=== PATIENT | female | born 1965 | race Caucasian/White ===

== ENCOUNTER → 2016-11-19 | Outpatient (CLI) | payer OTHER ==
[~2016-11-19] MED LIST: AUGMENTIN 875875 MG PO; PROTONIX40 MG PO
== END | disposition home or self-care (01) ==
LOC: CT 13:55
DX: J32.9 Chronic sinusitis, unspecified (principal); J34.2 Deviated nasal septum; R51 Headache; H92.02 Otalgia, left ear; H70.92 Unspecified mastoiditis, left ear

== ENCOUNTER 2016-11-22 19:14 | Inpatient (IN) | payer OTHER ==
[~2016-11-22] VITALS: Ht 178 cm; Wt 72.1 kg
--- NOTE | ~2016-11-22 | CON ---
[place], [place] REPORT OF CONSULTATION NAME: [facility]Z [facility] [id number] UNIT #: [id number] ROOM: 404 DOCTOR: JULIANN RIVAS MD BIRTHDATE: [birth year] DOS: 11/24/2016 HISTORY OF PRESENT ILLNESS: The patient is a 51-year-old who has presented with chief complaint of not feeling well, peripheral edema as well as initial H and H of 5 and 19, status post multi transfusions, black tarry stools, and ETOH history. The patient has had history of sinus issues and the left ear otitis, and mastoiditis on the left side. The patient has been on antibiotic here multi dose. Electrolytes were balanced. The bilirubin was 3.4, GOT and GPT of 80 and 17, alkaline phosphatase 212. CBC differential was reassessed, platelet count of 231. Lipase was 298 and alcohol level was 279. CT scan of the abdomen and pelvis, hepatomegaly, hepatic steatosis, dilated versus stricture along the left side of uterus, mild gallbladder wall thickening, and pericholecystic fluid. CT scan of the abdomen and pelvis reassessed with contrast. CBC differential after multiple transfusions was reassessed. H and H improved to 9 and 28, white blood cell still remains 12, platelet count 185. Differential within normal limits. Ultrasound of the abdomen was reassessed. Fatty liver, hepatosplenomegaly, bidirectional flow within the main portal vein, and prominence of the main portal vein and splenic vein. Mild gallbladder wall thickening, pericholecystic fluid was again seen and no stone was identified. Garvey sign was negative. PAST MEDICAL HISTORY: Essentially unremarkable. PAST SURGICAL HISTORY: Tonsillectomy and sinus left ear. SOCIAL HISTORY: Nonsmoker, however, alcohol consumer. FAMILY HISTORY: Hypertension. ALLERGIES: No known medication. REVIEW OF SYSTEMS: HEENT: Denies double vision, blurred vision. RESPIRATORY: Admits chronic shortness of breath. CARDIOVASCULAR: Denies chest pain. DIGESTIVE SYSTEM: No hematemesis; however, black tarry stool. PHYSICAL EXAMINATION: VITAL SIGNS: Stable. HEENT: Head normocephalic, nontraumatic. Mouth and buccal mucosa benign. NECK: Supple, no thyromegaly. CHEST: Symmetric anatomy, equal expansion. Decreased air entry in general. HEART: Normal sinus rhythm, no gallop, no murmur. ABDOMEN: Soft, slightly distended. Bowel sounds present. No rebound tenderness. EXTREMITIES: 2+ edema. NEUROLOGIC: Alert and oriented to time, place, person. IMPRESSION: Abnormal liver function test, most likely secondary to ETOH ruling out ___ for viral hepatitis, distended gallbladder with pericholecystic fluid, possibility of cholecystitis without evidence of cholelithiasis or choledocholithiasis, severe anemia, status post multitransfusion for hemoglobin [place], [place] REPORT OF CONSULTATION NAME: KERLINE ALVAREZ UNIT #: [id number] ROOM: 404 DOCTOR: JULIANN RIVAS MD BIRTHDATE: [birth year] of 5, which has improved to 9+, status post transfusion. PLAN AND DISCUSSION: Endoscopic assessment of upper GI tract, recommending hepatitis C. ASSESSMENT: Fatty liver and hepatosplenomegaly, most likely secondary to chronic alcoholism. She is not voluntarily yielding much information about her alcohol and I trust that she is at least consuming three bottles of wine per week. Workup in progress. Thank you very much indeed. EGD today, ruling out esophageal varicosity or contribution from upper GI. In future, also, she requires to have a colonoscopy. Hepatitis C is going to be ordered. JULIANN RIVAS MD CM:CONSTR:REPORT OF CONSULTATION 1704 11/25/16 0516 interface
--- NOTE | ~2016-11-22 | O ---
[place], [place] OPERATIVE NOTE [id number] #: [id number] ROOM: 404 DOCTOR: JULIANN RIVAS MD BIRTHDATE: [birth year] DOS: 11/24/2016 GASTROENDOSCOPIC REPORT INDICATIONS: A 51-year-old patient was presented with multiple medical problems, among which has been abnormal liver function tests consuming a moderate volume of wine and also dyspepsia and undergoing investigation. PROCEDURE: Today's procedure part of investigation is panendoscopy plus biopsy. PREMEDICATION: Versed and Diprivan. SCOPE: Olympus forward viewing gastroscope Q10 video. REPORT: After putting the patient in the left lateral position and after application of lubricant to the scope, the scope was introduced. Thereafter, under direct visualization, I advanced through the length of the esophagus without difficulty a 2 cm hiatal hernia was noticed, diffuse gastritis was noticed. Duodenal bulb, second and third part within normal limits. Antral biopsy was obtained. The patient extubated, tolerated procedure well. IMPRESSION: Diffuse gastritis, hiatal hernia, status post biopsy. PLAN AND DISCUSSION: Protonix 40 mg daily. Hepatitis screening panel for A, B, and C and repeat LFTs tomorrow and clinical reassessment. JULIANN RIVAS MD CM:OPRECORD:OPERATIVE NOTE [id number] JULIANN RIVAS MD 11/24/16 2253 interface
[2016-11-22 19:30] VITALS: BP 132/89
[2016-11-22 20:00] VITALS: BP 132/88
[2016-11-22 20:01] LABS: HEMATOCRIT 19.3 % (37.0-47.0); MEAN CORPUSCULAR HGB 29.5 pg (27.0-31.0); MEAN CORPUSCULAR HGB CONC 29.5 g/dl (33.0-37.0); MEAN PLATELET VOLUME 8.2 fl (9.6-12.3); PLATELET COUNT AUTOMATED 232 10*3/uL (130-400); RED BLOOD COUNT 1.93 10*6/uL (4.10-5.10); RED CELL DISTRI WIDTH 19.5 % (0-14.5); WHITE BLOOD COUNT 14.8 10*3/uL (4.8-10.8)
[2016-11-22 20:06] LABS: HEMOGLOBIN 5.7 g/dl (12.0-16.0)
[2016-11-22 20:15] LABS: ALKALINE PHOSPHATASE 212 U/L (45-117); BILIRUBIN, TOTAL 3.4 mg/dl (0.2-1.0); BUN 5 mg/dl (7-24); CARBON DIOXIDE 24 mmol/L (21-32); CHLORIDE 103 mmol/L (98-107); EST GLOM FILT AFRICAN AMERICAN > 60 ml/min; GLUCOSE 107 mg/dL (65-99); POTASSIUM 4.1 mmol/L (3.5-5.1); SGOT/AST 80 IU/L (3-35); SGPT/ALT 17 U/L (12-78); SODIUM 137 mmol/L (136-145)
[2016-11-22 20:20] LABS: BASOPHIL # 0.7 10*3/uL (0-0.1); BASOPHILS 5 % (0-1); EOSINOPHIL # 0.1 10*3/uL (0-0.4); EOSINOPHILS 1 % (1-4); LYMPHOCYTE # 1.9 10*3/uL (1.3-4.4); METAMYELOCYTES 1 % (0-0); MONOCYTE # 0.7 10*3/uL (0.1-1.0); NEUTROPHIL # 11.1 10*3/uL (2.3-7.9); NEUTROPHILS 75 % (47-73); TOTAL CELLS COUNTED 100 #CELLS
[2016-11-22 20:21] LABS: HYPOCHROMIA SLIGHT
[2016-11-22 20:22] LABS: PLATELET SUFFICIENCY NORMAL (NORMAL)
[2016-11-22 21:00] VITALS: BP 122/64
[2016-11-22 21:30] VITALS: BP 118/70
[2016-11-22 22:00] VITALS: BP 130/79; BP 130/80
[2016-11-23] VITALS (32 sets, daily range): BP systolic 92–143; BP diastolic 59–85
[2016-11-23 00:45] LABS: CPK 278 U/L (26-192)
[2016-11-23 00:50] LABS: CKMB 7.9 ng/ml (0.5-3.6); TROPONIN I < 0.015 ng/ml (<0.5)
[2016-11-23 06:34] LABS: BASO # 0.2 10*3/uL (0.0-0.1); BASO % 1.1 % (0.0-1.0); EOS # 0.3 10*3/uL (0.0-0.4); EOS % 1.9 % (1.0-4.0); HEMATOCRIT 21.5 % (37.0-47.0); HEMOGLOBIN 6.8 g/dl (12.0-16.0); IG # 0.1 10*3/uL (0.0-0.1); LYMPH # 0.9 10*3/uL (1.3-4.4); LYMPH % 6.7 % (27.0-41.0); MEAN CORPUSCULAR HGB 29.6 pg (27.0-31.0); MEAN CORPUSCULAR HGB CONC 31.6 g/dl (33.0-37.0); MONO # 1.2 10*3/uL (0.1-1.0); MONO % 8.3 % (3.0-9.0); NEUT # 11.4 10*3/uL (2.3-7.9); NEUT % 81.4 % (47.0-73.0); PLATELET COUNT AUTOMATED 182 10*3/uL (130-400); RED CELL DISTRI WIDTH 19.6 % (0-14.5)
[2016-11-23 06:36] LABS: CPK 187 U/L (26-192); TROPONIN I < 0.015 ng/ml (<0.5)
[2016-11-23 06:38] LABS: CKMB 5.3 ng/ml (0.5-3.6)
[2016-11-23 06:41] LABS: MEAN CELL VOLUME 93.5 fl (81.0-99.0)
[2016-11-23 06:57] LABS: ESTIMATED AVERAGE GLUCOSE 54; HEMOGLOBIN A1c < 3.5 % (4.8-5.6)
[2016-11-23 07:00] LABS: ALBUMIN 1.6 gm/dl (3.1-4.5); ALKALINE PHOSPHATASE 187 U/L (45-117); BILIRUBIN, TOTAL 3.6 mg/dl (0.2-1.0); BUN 5 mg/dl (7-24); CARBON DIOXIDE 23 mmol/L (21-32); CHLORIDE 105 mmol/L (98-107); CHOLESTEROL 99 mg/dL (<200); EST GLOM FILT AFRICAN AMERICAN > 60 ml/min; GLUCOSE 91 mg/dL (65-99); HDL CHOLESTEROL 23 mg/dl (40-60); LDL CHOLESTEROL 59 mg/dL (9-159); MAGNESIUM 1.8 mg/dL (1.5-2.1); PHOSPHOROUS 4.1 mg/dL (2.5-4.9); POTASSIUM 3.9 mmol/L (3.5-5.1); SGOT/AST 66 IU/L (3-35); SGPT/ALT 13 U/L (12-78); SODIUM 138 mmol/L (136-145); TOTAL PROTEIN 6.5 gm/dL (6.4-8.2); TRIGLYCERIDES 83 mg/dl (<150); VLDL CHOLESTEROL 17 mg/dL (6-40)
[2016-11-23 07:08] LABS: INTERNATIONAL NORM RATIO 1.7 (2.0-3.5); PROTHROMBIN TIME 18.5 SECONDS (9.0-12.4)
[2016-11-23 08:09] LABS: FOLIC ACID 2.63 ng/mL (>5.38)
[2016-11-23 08:46] LABS: HEMATOCRIT 21.8 % (37.0-47.0); HEMOGLOBIN 6.8 g/dl (12.0-16.0)
[2016-11-23 12:13] LABS: CPK 160 U/L (26-192)
[2016-11-23 12:21] LABS: TROPONIN I < 0.015 ng/ml (<0.5)
[2016-11-24] VITALS (9 sets, daily range): BP systolic 118–137; BP diastolic 73–82
[2016-11-24 06:09] LABS: BASO # 0.2 10*3/uL (0.0-0.1); BASO % 1.4 % (0.0-1.0); EOS # 0.5 10*3/uL (0.0-0.4); IG # 0.1 10*3/uL (0.0-0.1); LYMPH # 1.6 10*3/uL (1.3-4.4); LYMPH % 13.1 % (27.0-41.0); MEAN CORPUSCULAR HGB 29.5 pg (27.0-31.0); MEAN CORPUSCULAR HGB CONC 32.6 g/dl (33.0-37.0); MEAN PLATELET VOLUME 8.1 fl (9.6-12.3); MONO # 1.1 10*3/uL (0.1-1.0); MONO % 8.9 % (3.0-9.0); PLATELET COUNT AUTOMATED 185 10*3/uL (130-400); RED BLOOD COUNT 3.15 10*6/uL (4.10-5.10); RED CELL DISTRI WIDTH 19.2 % (0-14.5); WHITE BLOOD COUNT 12.5 10*3/uL (4.8-10.8)
[2016-11-24 06:16] LABS: HEMATOCRIT 28.5 % (37.0-47.0); HEMOGLOBIN 9.3 g/dl (12.0-16.0); MEAN CELL VOLUME 90.5 fl (81.0-99.0)
[2016-11-24 06:23] LABS: ALBUMIN 1.6 gm/dl (3.1-4.5); BILIRUBIN, TOTAL 4.9 mg/dl (0.2-1.0); BUN 8 mg/dl (7-24); CARBON DIOXIDE 25 mmol/L (21-32); CHLORIDE 106 mmol/L (98-107); EST GLOM FILT AFRICAN AMERICAN > 60 ml/min; GLUCOSE 75 mg/dL (65-99); POTASSIUM 3.8 mmol/L (3.5-5.1); SGOT/AST 65 IU/L (3-35); SGPT/ALT 13 U/L (12-78); SODIUM 138 mmol/L (136-145); TOTAL PROTEIN 6.9 gm/dL (6.4-8.2)
[2016-11-24 06:27] LABS: ALKALINE PHOSPHATASE 182 U/L (45-117)
[2016-11-25] VITALS: BP 115/67
[2016-11-25 06:40] LABS: BASO # 0.2 10*3/uL (0.0-0.1); BASO % 1.4 % (0.0-1.0); EOS # 0.4 10*3/uL (0.0-0.4); EOS % 3.5 % (1.0-4.0); HEMATOCRIT 29.4 % (37.0-47.0); HEMOGLOBIN 9.2 g/dl (12.0-16.0); IG # 0.1 10*3/uL (0.0-0.1); LYMPH # 1.7 10*3/uL (1.3-4.4); LYMPH % 13.2 % (27.0-41.0); MEAN CELL VOLUME 92.2 fl (81.0-99.0); MEAN CORPUSCULAR HGB 28.8 pg (27.0-31.0); MEAN CORPUSCULAR HGB CONC 31.3 g/dl (33.0-37.0); MEAN PLATELET VOLUME 8.6 fl (9.6-12.3); MONO # 1.1 10*3/uL (0.1-1.0); MONO % 8.7 % (3.0-9.0); NEUT # 9.2 10*3/uL (2.3-7.9); NEUT % 72.7 % (47.0-73.0); PLATELET COUNT AUTOMATED 190 10*3/uL (130-400); RED BLOOD COUNT 3.19 10*6/uL (4.10-5.10); RED CELL DISTRI WIDTH 19.3 % (0-14.5); WHITE BLOOD COUNT 12.6 10*3/uL (4.8-10.8)
[2016-11-25 07:12] LABS: ALBUMIN 1.4 gm/dl (3.1-4.5); BILIRUBIN, DIRECT 2.7 mg/dL (0.0-0.2); BILIRUBIN, TOTAL 4.1 mg/dl (0.2-1.0); BUN 10 mg/dl (7-24); CARBON DIOXIDE 24 mmol/L (21-32); CHLORIDE 103 mmol/L (98-107); EST GLOM FILT AFRICAN AMERICAN > 60 ml/min; GLUCOSE 119 mg/dL (65-99); POTASSIUM 3.8 mmol/L (3.5-5.1); SGOT/AST 57 IU/L (3-35); SGPT/ALT 11 U/L (12-78); SODIUM 136 mmol/L (136-145); TOTAL PROTEIN 6.4 gm/dL (6.4-8.2)
[2016-11-25 07:13] LABS: ALKALINE PHOSPHATASE 168 U/L (45-117)
[2016-11-25 07:14] LABS: INTERNATIONAL NORM RATIO 1.8 (2.0-3.5); PROTHROMBIN TIME 19.9 SECONDS (9.0-12.4)
[2016-11-25 08:00] VITALS: BP 126/72
[2016-11-25 08:09] LABS: HEPATITIS C VIRUS ANTIBODY <0.1 s/co (0.0-0.9)
[2016-11-25 12:00] VITALS: BP 131/83
[2016-11-25 14:00] VITALS: BP 131/83
[2016-11-25 20:00] VITALS: BP 125/76
[2016-11-26] VITALS: BP 115/70
[2016-11-26 06:26] LABS: BASO # 0.2 10*3/uL (0.0-0.1); BASO % 1.5 % (0.0-1.0); EOS # 0.5 10*3/uL (0.0-0.4); EOS % 5.2 % (1.0-4.0); HEMATOCRIT 27.8 % (37.0-47.0); HEMOGLOBIN 8.9 g/dl (12.0-16.0); IG # 0.1 10*3/uL (0.0-0.1); LYMPH # 1.9 10*3/uL (1.3-4.4); LYMPH % 18.5 % (27.0-41.0); MEAN CELL VOLUME 91.1 fl (81.0-99.0); MEAN CORPUSCULAR HGB 29.2 pg (27.0-31.0); MONO # 1.1 10*3/uL (0.1-1.0); MONO % 10.3 % (3.0-9.0); NEUT # 6.6 10*3/uL (2.3-7.9); NEUT % 63.9 % (47.0-73.0); PLATELET COUNT AUTOMATED 189 10*3/uL (130-400); RED BLOOD COUNT 3.05 10*6/uL (4.10-5.10); RED CELL DISTRI WIDTH 18.9 % (0-14.5); WHITE BLOOD COUNT 10.3 10*3/uL (4.8-10.8)
[2016-11-26 06:55] LABS: ALBUMIN 1.5 gm/dl (3.1-4.5); ALKALINE PHOSPHATASE 176 U/L (45-117); BILIRUBIN, TOTAL 3.7 mg/dl (0.2-1.0); BUN 9 mg/dl (7-24); CARBON DIOXIDE 25 mmol/L (21-32); CHLORIDE 106 mmol/L (98-107); EST GLOM FILT AFRICAN AMERICAN > 60 ml/min; GLUCOSE 84 mg/dL (65-99); POTASSIUM 3.9 mmol/L (3.5-5.1); SGOT/AST 57 IU/L (3-35); SGPT/ALT 11 U/L (12-78); SODIUM 138 mmol/L (136-145); TOTAL PROTEIN 6.7 gm/dL (6.4-8.2)
[2016-11-26 07:05] LABS: HEPATITIS C VIRUS ANTIBODY <0.1 s/co (0.0-0.9)
[2016-11-26 08:00] VITALS: BP 124/72
[2016-11-26 12:00] VITALS: BP 128/62
[2016-11-26] MEDS ORDERED: PROTONIX40 MG PO (13:53)
[2016-11-26] MEDS ORDERED: AUGMENTIN 875875 MG PO (13:53)
== END 2016-11-26 14:47 | disposition home or self-care (01) | DRG 871 ==
LOC: ED 19:14 → EDHOLD 20:59 → 4E 20:59 → ICCU 21:23 → 4E 11-24 14:10
PROVIDERS: Family Medicine; Internal Medicine; Internal Medicine Gastroenterology; Nurse Practitioner Family
PROC: 0DB68ZX Excision of Stomach, Via Natural or Artificial Opening Endoscopic, Diagnostic (ICD-10-PCS; principal; 2016-11-24)
DX: A41.9 Sepsis, unspecified organism (principal); E43 Unspecified severe protein-calorie malnutrition; K92.2 Gastrointestinal hemorrhage, unspecified; D62 Acute posthemorrhagic anemia; K70.0 Alcoholic fatty liver; F10.129 Alcohol abuse with intoxication, unspecified; H66.42 Suppurative otitis media, unspecified, left ear; E55.9 Vitamin D deficiency, unspecified; E53.8 Deficiency of other specified B group vitamins; K29.70 Gastritis, unspecified, without bleeding; K44.9 Diaphragmatic hernia without obstruction or gangrene; Z82.49 Family history of ischemic heart disease and other diseases of the circulatory system; Z98.890 Other specified postprocedural states; Z68.21 Body mass index [BMI] 21.0-21.9, adult

== ENCOUNTER → 2017-05-25 | Outpatient (CLI) | payer OTHER | END | disposition home or self-care (01) | LOC: US 17:45 | DX: M79.651 Pain in right thigh (principal); M79.89 Other specified soft tissue disorders ==

== ENCOUNTER 2017-09-03 04:47 | Inpatient (IN) | payer OTHER ==
[2017-09-03] VITALS (25 sets, daily range): BP systolic 120–168; BP diastolic 38–91
[~2017-09-03] VITALS: Ht 177.8 cm; Wt 85.3 kg
--- NOTE | ~2017-09-03 | CON ---
[place], [place] REPORT OF CONSULTATION [id number] #: [id number] ROOM: [facility]- DOCTOR: JULIANN RIVAS MD BIRTHDATE: [birth year] DOS: HISTORY OF PRESENT ILLNESS: The patient has presented with chief complaint of abdominal pain, subcutaneous hematoma in left upper quadrant, which has been already marked. The patient with multiple subcutaneous hematomas elsewhere as well. The patient is a known alcohol dependent end-stage liver disease with multiple admissions to multiple hospitals around. The patient is still actively alcohol consuming consumer. The patient was admitted for definitive evaluation, was found to have serum ammonia of 38, which is elevated. Lactic acid was 1.5 . Comprehensive metabolic panel, GFR greater than 60, electrolytes were balanced. GOT, GPT ____. Her total bilirubin at the time of admission was 10, AST and ALT of 101 and 31 with alkaline phosphatase of 201. CPK-MB was 13. Urine drug screening was negative. Chest x-ray was with no cardiomegaly. CBC differential was assessed. White blood cell was 6, H and H of 5 and 15 with platelet count of 48. Her INR was 2.2 with PT of 24 and PTT of [address] scan of the abdomen was assessed and heterogenicity of the liver was noticed, rectus muscle hematoma was noticed on the left lateral position. Longstanding sequelae of cirrhotic pathology including liver morphology was noticed. Phosphorus was 2.9, H and H after transfusing improved to 6 and eventually further elevation with more transfusion to 7.7 and 22, platelet count of 51. Urine cultures, greater than 100,000 bacteria. PAST MEDICAL HISTORY: Associated with cirrhosis, GI bleed, anemia, abnormal LFTs as a result thrombocytopenia, aggressive alcohol consumption. PAST SURGICAL HISTORY: Tonsillectomy. SOCIAL HISTORY: Nonsmoker, however, aggressive alcohol consumer. FAMILY HISTORY: Noncontributory. ALLERGIES: To no known medications. MEDICATIONS: Medication list at home reviewed. REVIEW OF SYSTEMS: HEENT: Denies double vision, blurred vision. RESPIRATORY: Denies shortness of breath. CARDIOVASCULAR: Denies acute chest pain. DIGESTIVE SYSTEM: No melanotic stool. PHYSICAL EXAMINATION: VITAL SIGNS: Stable, extremely jaundiced patient. HEENT: Head normocephalic, nontraumatic. Mouth and buccal mucosa benign. NECK: Supple, no thyromegaly. CHEST: Symmetric anatomy, equal expansion. HEART: Normal sinus rhythm, no gallop, no murmur. ABDOMEN: Soft. No hepato-organomegaly. Bowel sounds present. No pulsatile mass, cirrhotic liver history. EXTREMITIES: No cyanosis, no pedal edema. [place], [place] REPORT OF CONSULTATION NAME: KERLINE ALVAREZ UNIT #: [id number] ROOM: [facility] DOCTOR: JULIANN RIVAS MD BIRTHDATE: [birth year] NEUROLOGIC: Alert and oriented, no encephalopathy. IMPRESSION: Cirrhotic liver, severe anemia, portal hypertension, possible gastrointestinal bleed, transfusion for above, thrombocytopenia has been noticed. Platelet is going to be transfused. Endoscopic assessment is going to be done. Alcohol aggressive habit is noticed. PLAN AND DISCUSSION: Organizing EGD. JULIANN RIVAS MD CM:CONSTR:REPORT OF CONSULTATION 1040 09/05/17 0532 interface
--- NOTE | ~2017-09-03 | O ---
[place], [place] OPERATIVE NOTE NAME: KERLINE ALVAREZ UNIT #: [id number] ROOM: [facility]- DOCTOR: EVELYN DIMAS,JULIANN BIRTHDATE: [birth year] DOS: HISTORY OF PRESENT ILLNESS: A 51-year-old who has presented with chief complaint of GI bleed, hemoglobin of 5, thrombocytopenia, platelets of 40, two days after transfusion and stabilization is panendoscopy. PREMEDICATION: Versed and Diprivan. SCOPE: Olympus forward-viewing gastroscope Q10 video. REPORT: After putting the patient in the left lateral position and after application of lubricant to the scope, scope was introduced; thereafter, under direct visualization, advanced through the length of the esophagus without difficulty. At distal esophagus, clot on the visible vessel was noticed. Gastric pouch was entered. Gastritis and some degree blood in the gastric pouch noticed. Duodenal bulb, second and third part consistent with duodenitis. The patient extubated, no injection or hemostasis was performed on the tissue of the bleeding clot because of her low platelets. PLAN AND DISCUSSION: Aggressive management with Sandostatin 50 mcg per hour in addition to loading Protonix 40 mg IV b.i.d., sucralfate 2 grams sips q.6h., n.p.o., platelet transfusion up to 6 packs today, ICU monitoring, H and H q.6h., clinical reassessment. JULIANN RIVAS MD CM:OPRECORD:OPERATIVE NOTE 1040 [id number] JULIANN RIVAS MD 09/05/17 0540 interface
[2017-09-03] MEDS ORDERED: DELTASONE20 M1 PO (04:58)
[2017-09-03 05:37] LABS: BILIRUBIN 1+ (NEGATIVE); BLOOD 1+ (NEGATIVE); CLARITY CLOUDY (CLEAR); COLOR YELLOW (YELLOW); GLUCOSE NEGATIVE (NEGATIVE); KETONE NEGATIVE (NEGATIVE); LEUKO ESTERASE NEGATIVE (NEGATIVE); NITRITE POSITIVE (NEGATIVE); PH 5.5 (5.0-9.0); SPECIFIC GRAVITY <= 1.005 (1.005-1.030)
[2017-09-03 05:50] LABS: BACTERIA 4+
[2017-09-03 05:54] LABS: ALBUMIN 2.2 gm/dl (3.1-4.5); ALKALINE PHOSPHATASE 201 U/L (45-117); BUN 8 mg/dl (7-24); CHLORIDE 100 mmol/L (98-107); CPK 434 U/L (26-192); CREATININE 0.63 mg/dL (0.55-1.02); LIPASE 183 U/L (73-393); POTASSIUM 3.7 mmol/L (3.5-5.1); SGOT/AST 101 IU/L (3-35); SGPT/ALT 31 U/L (12-78); SODIUM 133 mmol/L (136-145); TOTAL PROTEIN 7.5 gm/dL (6.4-8.2); TROPONIN I 0.017 ng/ml (<0.045)
[2017-09-03 05:55] LABS: ETHYL ALCOHOL < 3.0 mg/dl (<3); URINE AMPHETAMINES < 1000 (1000ng/ml); URINE BARBITURATES < 200 (200ng/ml); URINE BENZODIAZEPINES < 200 (200ng/ml); URINE CANNABINOIDS (THC) < 50 (50ng/ml); URINE COCAINE < 300 (300ng/ml); URINE METHADONE < 300 (300ng/ml); URINE OPIATES < 300 (300ng/ml)
[2017-09-03 05:56] LABS: CKMB 13.6 ng/ml (0.5-3.6); URINE PHENCYCLIDINE < 25 (25ng/ml)
--- NOTE | 2017-09-03 05:56 | NUR ---
ER PHYSICIAN NOTIFIED OF CRITICAL LAB VALUES CKMB 13.6 AND TROPONIN 0.017.
[2017-09-03 06:20] LABS: MEAN CELL VOLUME 123.4 fl (81.0-99.0); MEAN CORPUSCULAR HGB 39.1 pg (27.0-31.0); MEAN CORPUSCULAR HGB CONC 31.6 g/dl (33.0-37.0); PLATELET COUNT AUTOMATED 48 10*3/uL (130-400); RED BLOOD COUNT 1.28 10*6/uL (4.10-5.10); RED CELL DISTRI WIDTH 16.2 % (0-14.5); WHITE BLOOD COUNT 6.6 10*3/uL (4.8-10.8)
[2017-09-03 06:23] LABS: BASOPHILS 1 % (0-1); PLATELET SUFFICIENCY LOW (NORMAL); POLYCHROMASIA SLIGHT; ROULEAUX SLIGHT; TOTAL CELLS COUNTED 100 #CELLS
--- NOTE | 2017-09-03 06:23 | NUR ---
PATIENT REPORTS THAT SHE NO LONGER HAS ANY PAIN LIKE SHE DID EARLIER.
[2017-09-03 06:25] LABS: HEMATOCRIT 15.8 % (37.0-47.0)
--- NOTE | 2017-09-03 06:25 | NUR ---
CRITICAL H/H OF 5.O AND 15.[address] ER DO[address]. DR. CRUZ DID A RECTAL HEMMOCCULT AND IT WAS POSITIVE.
[2017-09-03 06:28] LABS: INTERNATIONAL NORM RATIO 2.2 (2.0-3.5)
[2017-09-03 06:35] LABS: ACT PARTIAL THROMBO TIME 56.9 SECONDS (20.8-31.5)
--- NOTE | 2017-09-03 08:15 | NUR ---
A 51, admitted to [facility], under the services of ANA Ponce DO with a diagnosis of GI BLEED, CIRRHOSIS LIVER. Chief complaint is L SIDED ABDOMINAL PAIN. Patient arrived via ambulance from ER. Monitor applied. Initial assessment completed. Vital signs taken and recorded. ANA PONCE DO notified of admission to the unit. Orders received. See assessment for past medical history, medications and allergies. Patient and/or family oriented to unit. [facility] visitation policy reviewed. Clothing/patient valuable form completed. RAFAEL CAIN
--- NOTE | 2017-09-03 08:45 | NUR ---
DR RIVAS NOTIFIED OF CONSULT
[2017-09-03] MEDS ORDERED: VITAMIN K100 MC1 PO (09:13)
[2017-09-03 09:55] LABS: HEMATOCRIT 20.2 % (37.0-47.0); HEMOGLOBIN 6.4 g/dl (12.0-16.0)
--- NOTE | 2017-09-03 10:04 | NUR ---
2ND UNIT RBCS STARTED AFTER DRAWING HH
--- NOTE | 2017-09-03 10:20 | NUR ---
RECORDS FROM [facility] AND DR OFFICE GIVEN TO DR GAMBOA
--- NOTE | 2017-09-03 12:06 | NUR ---
2ND UNIT RBS INFUSED, PT MEDICATED WITH 2 MG MORPHINE AND ZOFRAN FOR ABD PAIN FROM BRUISE AND NAUSEA
--- NOTE | 2017-09-03 12:11 | NUR ---
DR CHRISTINE UPDATED ON 2ND UNIT BEING COMPLETED AND IF SHE WANTS THE FFPS GIVEN
--- NOTE | 2017-09-03 12:15 | NUR ---
NAPPING QUIETLY AFTER PAIN/NAUSEA MEDICATION
--- NOTE | 2017-09-03 13:34 | NUR ---
PT STATES NO DIFFERENCE IN ABD PAIN, THAT IT STILL HURTS WHEN SHE PUSHES ON THE BRUISED AREA, ADVISED NOT TO PUSH ON THE BRUISE
--- NOTE | 2017-09-03 13:39 | NUR ---
FIRST FFP STARTED
[2017-09-03 14:24] LABS: HEMATOCRIT 21.3 % (37.0-47.0); HEMOGLOBIN 7.1 g/dl (12.0-16.0)
--- NOTE | 2017-09-03 15:05 | NUR ---
2ND FFP STARTED
--- NOTE | 2017-09-03 17:11 | NUR ---
3RD UNIT FFP STARTED
--- NOTE | 2017-09-03 18:46 | NUR ---
3RD UNIT OFP-RBCS STARTED
--- NOTE | 2017-09-03 18:49 | NUR ---
24 HOUR CHART CHECK COMPLETED.
--- NOTE | 2017-09-03 19:53 | NUR ---
PT WITHOUT COMPLAINTS. ALERT AND PLEASANT. QUESTIONS FROM PT ANSWERED BY THIS RN. IV SITES ASYMPTOMATIC. NO S&S OF TRANSFUSION REACTION NOTED.
--- NOTE | 2017-09-03 22:17 | NUR ---
CONDITION UPDATED WITH DR CHAMORRO RE: BLOOD TRANSFUSION COMPLETED, VSS, PT WITHOUT ANY SIGNS OF BLEEDING AND NO COMPLAINTS. NO FURTHER LABWORK TO BE DONE TONIGHT UNLESS PT SHOULD BECOME UNSTABLE.
--- NOTE | 2017-09-03 22:45 | NUR ---
PT DROWSY...STATES RESTORIL EFFECTIVE AND MORPHINE GIVEN AT 2100 (ALONG WITH RESTORIL) WAS EFFECTIVE FOR PAIN IN LLQ THAT HAD BEEN AN 06/11 AND NOW DOWN TO 11/11. PAIN REMAINS WITH ACTIVITY OR PRESSURE ON AREA ONLY. CALL LIGHT IN REACH AND REINFORCED TO UTILIZE IT PRIOR TO GETTING OUT OF BED. PT REMAINS COMPLIANT WITH THIS.
--- NOTE | 2017-09-03 23:29 | NUR ---
PT COMPLAINING OF RETURNING PAIN LT SIDE AND RT SHOULDER. EXAMINATION SHOWS NO CHANGE IN CIRCLED HEMATOMA AND NOTHING FROM RT SHOULDER WELL. SHE STATES SHE HAS HAD THIS PAIN FOR THE PAST [address] CHAMORRO NOTIFIED AND WILL BE PLACING ORDER.
[2017-09-04] VITALS (16 sets, daily range): BP systolic 107–155; BP diastolic 54–92
--- NOTE | 2017-09-04 00:11 | NUR ---
PT WAS MEDICATED WITH DILAUDID AT 2355 FOR PAIN IN RT SHOULDER AND LEFT LOWER ABDOMEN BOTH 08/11. I REASSESSED HER TO CHECK EFFECTIVENESS AND SHE WAS DOZING BUT AWOKE EASILY...SHE STATES "I STILL HAVE A LITTLE PAIN IN MY SHOULDER BUT THE PAIN IN MY ABDOMEN HAS SUBSIDED. THANK YOU SO MUCH."
--- NOTE | 2017-09-04 02:59 | NUR ---
PT SLEEPING WITH EVEN, UNLABORED RESPIRATIONS. BODY RELAXED.
[2017-09-04 04:16] LABS: HEMATOCRIT 22.7 % (37.0-47.0); HEMOGLOBIN 7.7 g/dl (12.0-16.0); MEAN CORPUSCULAR HGB 35.8 pg (27.0-31.0); MEAN CORPUSCULAR HGB CONC 33.9 g/dl (33.0-37.0); MEAN PLATELET VOLUME 9.2 fl (9.6-12.3); NUCLEATED RED BLOOD CELL 0.3 % (0.0-0.0); PLATELET COUNT AUTOMATED 51 10*3/uL (130-400); RED BLOOD COUNT 2.15 10*6/uL (4.10-5.10); RED CELL DISTRI WIDTH 24.8 % (0-14.5); WHITE BLOOD COUNT 7.1 10*3/uL (4.8-10.8)
[2017-09-04 04:22] LABS: MEAN CELL VOLUME 105.6 fl (81.0-99.0)
[2017-09-04 04:29] LABS: INTERNATIONAL NORM RATIO 1.6 (2.0-3.5)
[2017-09-04 04:31] LABS: ALBUMIN 2.4 gm/dl (3.1-4.5); ALKALINE PHOSPHATASE 166 U/L (45-117); BILIRUBIN, DIRECT 6.9 mg/dL (0.0-0.2); BUN 8 mg/dl (7-24); CHLORIDE 101 mmol/L (98-107); CREATININE 0.52 mg/dL (0.55-1.02); HDL CHOLESTEROL 75 mg/dl (40-60); PHOSPHOROUS 3.7 mg/dL (2.5-4.9); POTASSIUM 3.7 mmol/L (3.5-5.1); SGOT/AST 83 IU/L (3-35); SGPT/ALT 30 U/L (12-78); SODIUM 134 mmol/L (136-145); TOTAL PROTEIN 7.4 gm/dL (6.4-8.2); TRIGLYCERIDES 68 mg/dl (<150); VLDL CHOLESTEROL 14 mg/dL (6-40)
[2017-09-04 04:32] LABS: CHOLESTEROL 107 mg/dL (<200); LDL CHOLESTEROL 18 mg/dL (9-159)
[2017-09-04 04:50] LABS: BASOPHILS 1 % (0-1); PLATELET SUFFICIENCY LOW (NORMAL); TOTAL CELLS COUNTED 100 #CELLS
[2017-09-04 04:51] LABS: POLYCHROMASIA SLIGHT
--- NOTE | 2017-09-04 05:06 | NUR ---
PT CONTINUES TO DENY BATH AT THIS TIME. STATES "I HAVEN'T SLEPT FOR DAYS AND I WANT TO TRY TO GO BACK TO SLEEP."
--- NOTE | 2017-09-04 05:26 | NUR ---
DR CHAMORRO NOTIFIED OF AM CBC RESULTS AND EFFECTIVENESS OF ONE TIME DILAUDID ORDER. THAT PT IS COMFORTABLE AND HAS SLEPT WELL AFTER NOT HAVING "SLEPT FOR DAYS". NO NEW ORDERS RECEIVED.
[2017-09-04 06:09] LABS: TOTAL PROTEIN, SERUM 6.8 g/dL (6.0-8.5)
[2017-09-04 06:31] LABS: VITAMIN D, 25-HYDROXY 20.1 ng/mL (30-100)
--- NOTE | 2017-09-04 07:10 | NUR ---
DR RIVAS NOTIFIED OF LABS. ORDERS RECEIVED.
--- NOTE | 2017-09-04 08:15 | NUR ---
[employer] in to talk to patient. Patient states lives at HOME with HER SON. There are 12 steps in the home. Physician: DR SANCHZE Pharmacy: [facility] Home health services: NONE Patient's level of ADLs: INDEPENDENT Patient has working utilities: YES DME: NONE Follow-up physician's appointment after d/c: WILL BE MADE PRIOR TO DC Does patient want to access PORTAL?: Discharge plan HOME. NED JARRELL
--- NOTE | 2017-09-04 08:32 | NUR ---
ECHO BEING DONE AT BEDSIDE
--- NOTE | 2017-09-04 08:59 | NUR ---
TO OR FOR EGD
--- NOTE | 2017-09-04 11:29 | NUR ---
RETURNED FROM OR, SANDOSTATIN DRIP STARTED AT 50 MCG PER HR AFTER 50 MCG BOLUS PT TO REMAIN NPO
--- NOTE | 2017-09-04 11:37 | NUR ---
FIRST BAG OF PLATELETS STARTED
--- NOTE | 2017-09-04 12:09 | NUR ---
DR CHRISTINE UPDATED ON PTS C/O SEVERE ABD PAIN
--- NOTE | 2017-09-04 12:51 | NUR ---
DILUADID FOR 10/10 ABD PAIN AT BRUISED SITE
--- NOTE | 2017-09-04 13:48 | NUR ---
SECOND BAG OF PLATELETS
--- NOTE | 2017-09-04 14:00 | NUR ---
ZOFRAN GIVEN FOR SMALL EMESIS OF CLEAR FLUID DILUADID HAS BEEN EFFECTIVE
[2017-09-04 15:04] LABS: ANTI-SMOOTH MUSCLE ANTIBODY 16 Units (0-19)
[2017-09-04 18:03] LABS: A/G RATIO 0.6 (0.7-1.7); ALBUMIN 2.6 g/dL (2.9-4.4); ALPHA-1-GLOBULIN 0.2 g/dL (0.0-0.4); ALPHA-2-GLOBULIN 0.3 g/dL (0.4-1.0); BETA GLOBULIN 0.9 g/dL (0.7-1.3); GAMMA GLOBULIN 2.7 g/dL (0.4-1.8); GLOBULIN, TOTAL 4.2 g/dL (2.2-3.9); M-SPIKE Not Observed g/dL (Not Observed)
--- NOTE | 2017-09-04 19:33 | NUR ---
PT UP IN CHAIR. VSS. PT WITHOUT COMPLAINTS AT THIS TIME. SANDOSTATIN GTT CONTINUES TO INFUSE ORDERED. AMBULATORY IN ROOM WITH STEADY GAIT. PT WETS MOUTH WITH TOOTHETTES BUT MAINTAINS STRICT NPO STATUS.
--- NOTE | 2017-09-04 23:11 | NUR ---
RESTORIL GIVEN AT 2115 PER PT REQUEST FOR SLEEP EFFECTIVE...PT SLEEPING WITH EVEN, UNLABORED RESPIRATIONS.
[2017-09-05] VITALS (10 sets, daily range): BP systolic 93–120; BP diastolic 47–76
[2017-09-05 04:43] LABS: BASO % 0.4 % (0.0-1.0); EOS % 0.2 % (1.0-4.0); HEMATOCRIT 20.6 % (37.0-47.0); HEMOGLOBIN 6.8 g/dl (12.0-16.0); LYMPH # 0.8 10*3/uL (1.3-4.4); MEAN CELL VOLUME 107.9 fl (81.0-99.0); MEAN CORPUSCULAR HGB 35.6 pg (27.0-31.0); MEAN PLATELET VOLUME 9.1 fl (9.6-12.3); MONO # 0.4 10*3/uL (0.1-1.0); MONO % 4.5 % (3.0-9.0); NEUT # 6.8 10*3/uL (2.3-7.9); NEUT % 82.1 % (47.0-73.0); RED BLOOD COUNT 1.91 10*6/uL (4.10-5.10); RED CELL DISTRI WIDTH 25.5 % (0-14.5); WHITE BLOOD COUNT 8.2 10*3/uL (4.8-10.8)
[2017-09-05 04:46] LABS: PLATELET COUNT AUTOMATED 72 10*3/uL (130-400)
[2017-09-05 04:55] LABS: CHLORIDE 102 mmol/L (98-107); CREATININE 0.81 mg/dL (0.55-1.02); INTERNATIONAL NORM RATIO 1.9 (2.0-3.5)
[2017-09-05 05:03] LABS: SODIUM 137 mmol/L (136-145)
[2017-09-05 05:04] LABS: BUN 21 mg/dl (7-24); POTASSIUM 4.7 mmol/L (3.5-5.1)
--- NOTE | 2017-09-05 06:27 | NUR ---
DISCUSSED AM LABS WITH DR BULLARD. BLOOD TRANSFUSION WILL BE ORDERED BY HIM.
--- NOTE | 2017-09-05 08:18 | NUR ---
4TH UNIT OF RBC'S STARTED
--- NOTE | 2017-09-05 13:44 | NUR ---
PT ACCOMPANIED TO RADIOLOGY FOR CT SCAN. TOLERATED WELL.
[2017-09-05] MEDS ORDERED: CEFTRIAXONE1 GM IJ (16:14)
[2017-09-05] MEDS ORDERED: Vitamin D PO (16:14)
[2017-09-05] MEDS ORDERED: SANDOSTATI500 MCG/1 IJ (16:14)
[2017-09-05] MEDS ORDERED: PROPRANOLOL HCL10 MG PO (16:14)
[2017-09-05] MEDS ORDERED: Carafate1 GM/10 ML PO (16:14)
[2017-09-05] MEDS ORDERED: LACTULOSE20 GM/30 M PO (16:14)
[2017-09-05] MEDS ORDERED: PROTONIX40 M1 IV (16:14)
--- NOTE | 2017-09-05 16:41 | NUR ---
DR LOCO SPOKE WITH DR JULIAN DOMINGO
--- NOTE | 2017-09-05 17:48 | NUR ---
REPORT TO [facility], BED 802 BED 1 AWAITING TRANSPORT PT HAS UPDATED HER FAMILY
--- NOTE | 2017-09-05 18:44 | NUR ---
JOHNFERRED TO [facility] RM 1287 VIA HELICOPTER
== END 2017-09-05 18:44 | disposition short-term general hospital (02) | DRG 432 ==
LOC: ED 04:47 → EDHOLD 06:52 → ICCU 06:52 → EDHOLD 07:47 → ICCU 07:57
PROVIDERS: Emergency Medicine; Family Medicine; Hospitalist; ADMIT Internal Medicine
PROC: 30233L1 Transfusion of Nonautologous Fresh Plasma into Peripheral Vein, Percutaneous Approach (ICD-10-PCS; 2017-09-03)
PROC: 30233N1 Transfusion of Nonautologous Red Blood Cells into Peripheral Vein, Percutaneous Approach (ICD-10-PCS; 2017-09-03)
PROC: 30233K1 Transfusion of Nonautologous Frozen Plasma into Peripheral Vein, Percutaneous Approach (ICD-10-PCS; 2017-09-03)
PROC: 0DJ08ZZ Inspection of Upper Intestinal Tract, Via Natural or Artificial Opening Endoscopic (ICD-10-PCS; principal; 2017-09-04)
PROC: 30233R1 Transfusion of Nonautologous Platelets into Peripheral Vein, Percutaneous Approach (ICD-10-PCS; 2017-09-04)
DX: K70.30 Alcoholic cirrhosis of liver without ascites (principal); K29.71 Gastritis, unspecified, with bleeding; E43 Unspecified severe protein-calorie malnutrition; D69.6 Thrombocytopenia, unspecified; I11.0 Hypertensive heart disease with heart failure; I50.32 Chronic diastolic (congestive) heart failure; E87.1 Hypo-osmolality and hyponatremia; I85.00 Esophageal varices without bleeding; K29.81 Duodenitis with bleeding; K76.6 Portal hypertension; N39.0 Urinary tract infection, site not specified; K75.9 Inflammatory liver disease, unspecified; M19.011 Primary osteoarthritis, right shoulder; D64.9 Anemia, unspecified; R16.2 Hepatomegaly with splenomegaly, not elsewhere classified; F10.10 Alcohol abuse, uncomplicated; E53.8 Deficiency of other specified B group vitamins; E55.9 Vitamin D deficiency, unspecified; E80.6 Other disorders of bilirubin metabolism; R74.0 Nonspecific elevation of levels of transaminase and lactic acid dehydrogenase [LDH]; Z82.49 Family history of ischemic heart disease and other diseases of the circulatory system; Z72.89 Other problems related to lifestyle; Z82.0 Family history of epilepsy and other diseases of the nervous system; Z68.22 Body mass index [BMI] 22.0-22.9, adult